=== PATIENT | female | born 2000 | race Asian ===

== ENCOUNTER 2023-12-21 08:12 | Outpatient (REF) | payer OTHER, SELFPAY ==
--- NOTE | ~2023-12-21 | US_ITS ---
EXAMINATION: US PELVIS CLINICAL INFORMATION: Irregular menses COMPARISON: None available. TECHNIQUE: Ultrasound of the pelvis is performed using both transabdominal and transvaginal transducers along with Doppler. Transvaginal imaging is performed due to inadequate visualization transabdominally. FINDINGS: Uterus: The uterus is anteverted and measures 8.1 x 2.5 x 3.3 cm. The double wall endometrial thickness is 7 mm. The uterus is smooth in contour and has normal myometrial echogenicity. No visible fibroid. Adnexa: Both ovaries are visualized. There is normal color flow to the adnexa. There is no ovarian torsion. There is no pelvic ascites or fluid collection. Right ovary measures 2.5 x 1.6 x 1.5 cm. Left ovary measures 2.2 x 1.4 x 1.7 cm. US/US pelvic and transvaginal IMPRESSION: Normal pelvic ultrasound. Electronically signed by: Marvel Pineda MD 12/21/2023 03:34 PM EDT
== END 2023-12-21 08:13 | disposition home or self-care (01) ==
LOC: HO.UMASIMG 08:12
PROVIDERS: Visit Provider Nurse Practitioner Women's Health
DX: N91.2 Amenorrhea, unspecified (principal)
CPT/HCPCS: 76830; 76856